=== PATIENT | female | born 1990 | race Caucasian/White ===

== ENCOUNTER 2018-12-25 02:23 | Emergency (ER) | payer OTHER, SELFPAY ==
[2018-12-25 02:27] VITALS: BP 109/59; PULSE 155; RESP 20; TEMP 36.8; O2SAT 98
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
[2018-12-25] MEDS: TET,DIPH,PERTUSS(ACELL),VAC/PF 0.5 ML SYRINGE IM (02:39)
[2018-12-25] MEDS: LIDOCAINE 1% (PF) 4 ML INJ (02:39)
--- NOTE | 2018-12-25 03:59 | PC.NURSE ---
Pt connected to significant other Rashawn via telephone in the nurse core.
--- NOTE | 2018-12-25 04:20 | PC.NURSE ---
Pt waiting in room for taxi at 5am. Pt recieved a call from sig other.
[2018-12-25 04:33] VITALS: BP 125/62; PULSE 89; RESP 16; O2SAT 100
== END 2018-12-25 05:16 | disposition home or self-care (01) ==
PROVIDERS: Emergency Provider Emergency Medicine
DX: S61.204A Unspecified open wound of right ring finger without damage to nail, initial encounter (principal); Z23 Encounter for immunization
CPT/HCPCS: 90471; 99282; 99283; 90715